=== PATIENT | female | born 1970 | race Two or more races ===

== ENCOUNTER 2021-09-14 17:34 | Emergency (ER) | payer BC ==
[~2021-09-14] VITALS: Ht 167.6 cm; Wt 93.4 kg
[2021-09-14] MEDS ORDERED: DUI500 PO (18:49)
[2021-09-14] MEDS ORDERED: MEDROLPACK PO (18:49)
[2021-09-14] MEDS ORDERED: ALLEGRA ALLERG180 MG PO (18:49)
== END 2021-09-14 19:02 | disposition home or self-care (01) ==
LOC: ER 17:34
DX: L30.8 Other specified dermatitis (principal)